=== PATIENT | female | born 1970 | race Caucasian/White ===

== ENCOUNTER 2023-10-01 22:32 | Emergency (ER) | payer MEDICARE ==
[~2023-10-01] VITALS: Ht 154.9 cm; Wt 61.4 kg
[2023-10-01 22:57] VITALS: BP 164/89; TEMP 97.6; O2SAT 100
[2023-10-02 02:42] LABS: BASO # 0.1 10^3/uL (0.0-0.2); BASO % 0.7 % (0.0-1.0); EOS # 0.2 10^3/uL (0.0-0.5); EOS % 1.6 % (0.0-3.0); HEMATOCRIT 36.7 % (36.0-47.0); HEMOGLOBIN 11.8 g/dl (12.0-15.5); LYMPH # 2.4 10^3/uL (1.5-5.0); LYMPH % 24.7 % (24.0-44.0); MEAN CORPUSCULAR HEMOGLOBIN 30.2 pg (27.0-33.0); MEAN CORPUSCULAR HGB CONC 32.2 g/dl (32.0-36.5); MEAN CORPUSCULAR VOLUME 93.9 fl (80.0-96.0); MONO # 0.8 10^3/uL (0.0-0.8); MONO % 7.9 % (2.0-8.0); NEUTROPHILS # 6.2 10^3/uL (1.5-8.5); NEUTROPHILS % 64.7 % (36.0-66.0); PLATELET COUNT, AUTOMATED 360 10^3/uL (150-450); RED BLOOD COUNT 3.91 10^6/uL (4.00-5.40); WHITE BLOOD COUNT 9.5 10^3/uL (4.0-10.0)
[2023-10-02 03:13] LABS: BLOOD UREA NITROGEN 15 MG/DL (9-23); CALCIUM LEVEL 9.2 MG/DL (8.5-10.1); CARBON DIOXIDE LEVEL 25 MMOL/L (20-31); CHLORIDE LEVEL 110 MMOL/L (98-107); CK-MB VALUE MASS 1.6 NG/ML (<3.6); CPK CREATINE PHOSPHOKINASE 173 U/L (34-145); CREATININE FOR GFR 0.62 MG/DL (0.55-1.30); GLOMERULAR FILTRATION RATE > 60.0 (>51); GLUCOSE, FASTING 101 MG/DL (60-100); MB/CK RELATIVE INDEX 0.92 (< OR =4); POTASSIUM SERUM 3.2 MMOL/L (3.5-5.1); SODIUM LEVEL 142 MMOL/L (136-145)
== END 2023-10-02 03:57 | disposition left against medical advice (07) ==
LOC: M ED 22:32
DX: R07.9 Chest pain, unspecified (principal); Z53.9 Procedure and treatment not carried out, unspecified reason

== ENCOUNTER 2023-10-02 23:20 | Emergency (ER) | payer MEDICARE ==
[~2023-10-02] VITALS: Ht 154.9 cm; Wt 61.4 kg
[2023-10-02 23:35] VITALS: BP 131/69; TEMP 96.6; O2SAT 100
== END 2023-10-03 01:18 | disposition left against medical advice (07) ==
LOC: M ED 23:20
DX: Z53.21 Procedure and treatment not carried out due to patient leaving prior to being seen by health care provider (principal)

== ENCOUNTER 2023-10-03 01:07 | Inpatient (IN) | payer MEDICARE ==
[~2023-10-03] VITALS: Ht 154.9 cm; Wt 60.1 kg
[2023-10-03 02:20] LABS: BASO # 0.1 10^3/uL (0.0-0.2); BASO % 0.5 % (0.0-1.0); EOS # 0.2 10^3/uL (0.0-0.5); EOS % 2.3 % (0.0-3.0); HEMATOCRIT 35.9 % (36.0-47.0); HEMOGLOBIN 11.6 g/dl (12.0-15.5); LYMPH # 2.5 10^3/uL (1.5-5.0); LYMPH % 26.3 % (24.0-44.0); MEAN CORPUSCULAR HEMOGLOBIN 30.9 pg (27.0-33.0); MEAN CORPUSCULAR HGB CONC 32.3 g/dl (32.0-36.5); MEAN CORPUSCULAR VOLUME 95.5 fl (80.0-96.0); MONO # 0.8 10^3/uL (0.0-0.8); NEUTROPHILS # 5.9 10^3/uL (1.5-8.5); NEUTROPHILS % 62.4 % (36.0-66.0); PLATELET COUNT, AUTOMATED 386 10^3/uL (150-450); RED BLOOD COUNT 3.76 10^6/uL (4.00-5.40); WHITE BLOOD COUNT 9.5 10^3/uL (4.0-10.0)
[2023-10-03 02:43] LABS: ETHYL ALCOHOL (ETHANOL) < 0.003 % (0.000-0.010)
[2023-10-03 02:44] LABS: SALICYLATE LEVEL 3.3 MG/DL (<30)
[2023-10-03 02:45] LABS: ALKALINE PHOSPHATASE 80 U/L (46-116); ALT/SGPT 20 U/L (7.0-40); AST/SGOT 21 U/L (<34); BILIRUBIN,DIRECT 0.2 MG/DL (<0.4); BILIRUBIN,TOTAL 0.4 MG/DL (0.3-1.2); BLOOD UREA NITROGEN 16 MG/DL (9-23); CALCIUM LEVEL 9.3 MG/DL (8.5-10.1); CARBON DIOXIDE LEVEL 26 MMOL/L (20-31); CHLORIDE LEVEL 108 MMOL/L (98-107); CREATININE FOR GFR 0.66 MG/DL (0.55-1.30); GLOMERULAR FILTRATION RATE > 60.0 (>51); GLUCOSE, FASTING 148 MG/DL (60-100); SODIUM LEVEL 140 MMOL/L (136-145); TOTAL PROTEIN 7.1 G/DL (5.7-8.2)
[2023-10-03 02:47] LABS: THYROID STIMULATING HORMONE 0.925 uIU/ML (0.55-4.78)
[2023-10-03 04:59] LABS: AMPHETAMINES LEVEL URINE NEGATIVE (NEGATIVE); BARBITURATES URINE NEGATIVE (NEGATIVE); BENZODIAZEPINES URINE NEGATIVE (NEGATIVE); COCAINE METABOLITE URINE NEGATIVE (NEGATIVE); METHADONE URINE NEGATIVE (NEGATIVE); OPIATES URINE NEGATIVE (NEGATIVE); PHENCYCLIDINE URINE NEGATIVE (NEGATIVE)
[2023-10-03 05:00] LABS: CANNABINOIDS URINE POSITIVE (NEGATIVE)
[2023-10-03] MEDS: POTASSIUM CHLORIDE 10MEQ SR TABLET PO ONE (06:02)
[2023-10-03] MEDS ORDERED: HOME MED LIST COMPLETE! XX SCH (10:25)
[2023-10-03] MEDS ORDERED: MOM 30ML SUSPENSION UDC PO PRN (20:50)
[2023-10-03] MEDS: traZODone 50 MG TAB PO PRN (22:48)
[2023-10-03] MEDS: ACETAMINOPHEN TAB 650MG DOSE (2X325MG) PO PRN (22:48)
[2023-10-04] MEDS: IBUPROFEN 400MG TAB PO PRN (00:09)
[2023-10-04 00:19] VITALS: BP 152/72; TEMP 98.9; O2SAT 100
[2023-10-04 06:24] VITALS: BP 104/57; TEMP 98.4; O2SAT 98
[2023-10-04 09:30] VITALS: BP 128/63; TEMP 98.2; O2SAT 100
[2023-10-04] MEDS: ESCITALOPRAM OXALATE 10 MG TAB (LEXAPRO) PO SCH (09:39)
[2023-10-04] MEDS: ASPIRIN 325 MG TAB PO ONE (11:01)
[2023-10-04] MEDS: POTASSIUM CHLORIDE 10MEQ SR TABLET PO SCH (11:01)
[2023-10-04 11:50] LABS: BLOOD UREA NITROGEN 14 MG/DL (9-23); CALCIUM LEVEL 9.3 MG/DL (8.5-10.1); CARBON DIOXIDE LEVEL 25 MMOL/L (20-31); CHLORIDE LEVEL 111 MMOL/L (98-107); CREATININE FOR GFR 0.56 MG/DL (0.55-1.30); GLOMERULAR FILTRATION RATE > 60.0 (>51); GLUCOSE, FASTING 92 MG/DL (60-100); POTASSIUM SERUM 4.3 MMOL/L (3.5-5.1); SODIUM LEVEL 142 MMOL/L (136-145)
[2023-10-04] MEDS: diphenhydrAMINE 25MG CAP PO PRN (14:27)
[2023-10-04] MEDS: LOPERAMIDE 2 MG CAPLET PO PRN (16:03)
[2023-10-04 17:49] VITALS: BP 135/83; TEMP 98.6
[2023-10-04] MEDS: MAALOX 30 ML SUSP *UDC PO PRN (21:26)
[2023-10-04] MEDS: traMADol 50 MG TAB PO ONE (21:51)
[2023-10-04] MEDS: diphenhydrAMINE 25MG CAP PO ONE (23:44)
[2023-10-04] MEDS: MAALOX 30 ML SUSP *UDC PO ONE (23:45)
[2023-10-05 05:00] VITALS: BP 151/79; TEMP 98.1; O2SAT 99
[2023-10-05] MEDS ORDERED: ACETAMINOPHEN *IV* 1,000 MG in IV 1 EA IV ONE (05:05)
[2023-10-05] MEDS: traMADol 50 MG TAB PO ONE (05:33)
[2023-10-05] MEDS: LIDOCAINE 5% (LIDODERM) PATCH TD ONE (06:02)
[2023-10-05 10:55] VITALS: BP 136/75
[2023-10-05] MEDS: PROPRANOLOL 10 MG TAB PO SCH (10:59)
[2023-10-05] MEDS: DULoxetine 20MG CAP (CYMBALTA) PO SCH (10:59)
[2023-10-05 18:13] VITALS: BP 146/86; TEMP 98.3
[2023-10-05 20:12] VITALS: BP 114/58
[2023-10-05] MEDS: PILL CUTTER 1 EACH XX PRN (20:14)
[2023-10-05] MEDS: traZODone 50 MG TAB PO PRN (20:15)
[2023-10-05] MEDS: CYCLOBENZAPRINE 5MG TABLET PO ONE (23:09)
[2023-10-05] MEDS: LIDOCAINE 5% (LIDODERM) PATCH TD SCH (23:09)
[2023-10-06 06:19] VITALS: BP 107/54; TEMP 98.1; O2SAT 100
[2023-10-06] MEDS: NICOTINE 21MG/24HR 1 EA TRANSDERMAL TD SCH (11:34)
[2023-10-06 16:25] VITALS: BP 139/75; TEMP 98.5; O2SAT 100
[2023-10-06] MEDS: traMADol 50 MG TAB PO ONE (21:43)
[2023-10-06] MEDS ORDERED: ATIV1TAB10 PO (22:52)
[2023-10-06] MEDS ORDERED: FAMO40TA3 PO (22:52)
[2023-10-06] MEDS ORDERED: FERR1TAB8 PO (22:52)
[2023-10-06] MEDS ORDERED: DULO1CAP5 PO (22:52)
[2023-10-06] MEDS ORDERED: LOPE2TAB12 PO (22:52)
[2023-10-06] MEDS ORDERED: ONDA-83 PO (22:52)
[2023-10-06] MEDS ORDERED: MULT-40 PO (22:52)
[2023-10-06] MEDS ORDERED: ERGO500029 PO (22:52)
[2023-10-06] MEDS ORDERED: HYDR1CAP25 PO (22:52)
[2023-10-06] MEDS ORDERED: LIDO76.52 TOP (22:52)
[2023-10-06] MEDS ORDERED: LIDO1ADH20 TOP (22:52)
[2023-10-06] MEDS ORDERED: MORP30TASA PO (22:52)
[2023-10-06] MEDS ORDERED: RA M10TA PO (22:52)
[2023-10-06] MEDS ORDERED: TRAM50TA2 PO (22:52)
[2023-10-06] MEDS ORDERED: PROBCAP5 PO (22:52)
[2023-10-06] MEDS ORDERED: HOME MED LIST COMPLETE! XX SCH (23:00)
[2023-10-07 06:27] VITALS: BP 116/56; TEMP 98.2; O2SAT 98
[2023-10-07] MEDS: MULTIVITAMINS/MINERALS THERAP 1 TAB PO SCH (14:15)
[2023-10-07] MEDS: FAMOTIDINE 20 MG TAB PO SCH (14:18)
[2023-10-07 16:10] VITALS: BP 152/88; TEMP 99.2; O2SAT 100
[2023-10-07] MEDS: traMADol 50 MG TAB PO PRN (17:12)
[2023-10-07] MEDS: ONDANSETRON 4MG TAB PO PRN (17:12)
[2023-10-07] MEDS: LORazepam 0.5 MG TAB PO PRN (17:15)
[2023-10-07] MEDS: DULoxetine 20MG CAP (CYMBALTA) PO SCH (21:00)
[2023-10-07] MEDS: LACTOBACILLUS ACIDOPHILUS CAP (BACID) PO SCH (21:01)
[2023-10-07] MEDS: FERROUS SULFATE 325MG TAB PO SCH (21:01)
[2023-10-08 06:23] VITALS: BP 114/62; TEMP 98.4; O2SAT 97
[2023-10-08 10:16] VITALS: TEMP 99.7
[2023-10-08 16:40] VITALS: BP 128/74; TEMP 99; O2SAT 98
[2023-10-08] MEDS ORDERED: ISOVUE-370 76% 100ML VIAL As Ordered ONE (17:47)
[2023-10-08] MEDS: NITROGLYCERIN 0.4MG SUBL TABLET SL ONE (18:02)
[2023-10-08 18:23] LABS: BASO % 0.5 % (0.0-1.0); EOS # 0.2 10^3/uL (0.0-0.5); EOS % 3.2 % (0.0-3.0); HEMATOCRIT 34.6 % (36.0-47.0); HEMOGLOBIN 10.7 g/dl (12.0-15.5); LYMPH # 2.2 10^3/uL (1.5-5.0); LYMPH % 38.4 % (24.0-44.0); MEAN CORPUSCULAR HEMOGLOBIN 30.4 pg (27.0-33.0); MEAN CORPUSCULAR HGB CONC 30.9 g/dl (32.0-36.5); MEAN CORPUSCULAR VOLUME 98.3 fl (80.0-96.0); MONO # 0.5 10^3/uL (0.0-0.8); NEUTROPHILS # 2.8 10^3/uL (1.5-8.5); NEUTROPHILS % 49.4 % (36.0-66.0); PLATELET COUNT, AUTOMATED 314 10^3/uL (150-450); RED BLOOD COUNT 3.52 10^6/uL (4.00-5.40); WHITE BLOOD COUNT 5.7 10^3/uL (4.0-10.0)
[2023-10-08 18:30] LABS: ERYTHROCYTE SEDIMENTATION RATE 17 mm/hr (0-30)
[2023-10-08] MEDS ORDERED: NITROGLYCERIN 0.4MG SUBL TABLET SL PRN (18:45)
[2023-10-08 18:46] LABS: C REACTIVE PROTEIN QUANTITATIV < 0.40 MG/DL (<1.0); CK-MB VALUE MASS < 1.0 NG/ML (<3.6)
[2023-10-08 18:48] LABS: ALBUMIN 3.5 G/DL (3.2-5.2); ALKALINE PHOSPHATASE 82 U/L (46-116); ALT/SGPT 19 U/L (7.0-40); AST/SGOT 12 U/L (<34); BILIRUBIN,TOTAL 0.2 MG/DL (0.3-1.2); BLOOD UREA NITROGEN 15 MG/DL (9-23); CARBON DIOXIDE LEVEL 30 MMOL/L (20-31); CHLORIDE LEVEL 109 MMOL/L (98-107); CPK CREATINE PHOSPHOKINASE 56 U/L (34-145); CREATININE FOR GFR 0.69 MG/DL (0.55-1.30); GLOMERULAR FILTRATION RATE > 60.0 (>51); GLUCOSE, FASTING 100 MG/DL (60-100); MB/CK RELATIVE INDEX 1.78 (< OR =4); POTASSIUM SERUM 4.3 MMOL/L (3.5-5.1); SODIUM LEVEL 142 MMOL/L (136-145); TOTAL PROTEIN 6.3 G/DL (5.7-8.2)
[2023-10-08 18:54] LABS: PROCALCITONIN <0.04 ng/ml
[2023-10-08] MEDS: FLUCONAZOLE 50MG TABLET PO ONE (19:10)
[2023-10-08] MEDS: MORPHINE 30 MG SA TAB PO ONE (19:13)
[2023-10-08] MEDS: PANTOPRAZOLE 20 MG TAB PO SCH (19:43)
[2023-10-08] MEDS: BENZOCAINE 10% 9GM TUBE (ANBESOL) TOP SCH (23:43)
[2023-10-09 00:16] LABS: CK-MB VALUE MASS < 1.0 NG/ML (<3.6)
[2023-10-09 00:17] LABS: CPK CREATINE PHOSPHOKINASE 60 U/L (34-145); MB/CK RELATIVE INDEX 1.66 (< OR =4)
[2023-10-09 06:19] VITALS: BP 111/54; TEMP 97.7; O2SAT 98
[2023-10-09 07:19] LABS: CK-MB VALUE MASS < 1.0 NG/ML (<3.6)
[2023-10-09 07:21] LABS: CPK CREATINE PHOSPHOKINASE 55 U/L (34-145); MB/CK RELATIVE INDEX 1.81 (< OR =4)
[2023-10-09 07:31] LABS: Trichomonas vaginalis (AMP) NOT DETECTED (NEGATIVE)
[2023-10-09 07:54] LABS: GC DNA AMPLIFICATION NEGATIVE (NEGATIVE)
[2023-10-09] MEDS: MORPHINE 30 MG SA TAB PO SCH (08:18)
[2023-10-09] MEDS: VITAMIN D 50,000 UNITS CAPSULE (ERGOCALCIFEROL 1.25MG) PO SCH (08:19)
[2023-10-09] MEDS: SUCRALFATE 1 GM TAB PO SCH (18:00)
[2023-10-09 20:42] VITALS: BP 110/58
[2023-10-09 20:48] VITALS: BP 109/60; TEMP 98.6; O2SAT 99
[2023-10-10 06:29] VITALS: BP 105/55; TEMP 98.7; O2SAT 99
[2023-10-10 08:03] VITALS: BP 130/61
[2023-10-10 08:12] VITALS: BP 130/61
[2023-10-10] MEDS ORDERED: PROP10TA56 PO (10:18)
[2023-10-10] MEDS ORDERED: PANT20TA51 PO (10:18)
[2023-10-10] MEDS ORDERED: SUCR1TA PO (10:18)
[2023-10-10] MEDS ORDERED: DULO-34 PO (10:18)
[2023-10-10] MEDS ORDERED: LIDO5TD TD (10:18)
[2023-10-10] MEDS ORDERED: NICO21PAT TD (10:18)
[2023-10-10] MEDS ORDERED: TRAZ-252 PO (10:18)
[2023-10-10] MEDS ORDERED: MORP30TASA PO (10:37)
[2023-10-10] MEDS ORDERED: TRAM50TA2 PO (10:38)
[2023-10-10] MEDS ORDERED: DULO1CAP4 PO (10:57)
[2023-10-10 11:10] VITALS: BP 121/72
== END 2023-10-10 15:07 | disposition home or self-care (01) | DRG 881 ==
LOC: M ED 01:07 → M ED INP 20:50 → M PSY 21:35
PROVIDERS: ADMIT Psychiatry & Neurology Psychiatry; ATTEND Student in an Organized Health Care Education/Training Program
DX: F32.A Depression, unspecified (principal); R45.851 Suicidal ideations; Z59.00 Homelessness unspecified; E06.3 Autoimmune thyroiditis; I34.1 Nonrheumatic mitral (valve) prolapse; F12.188 Cannabis abuse with other cannabis-induced disorder; E87.6 Hypokalemia; R07.89 Other chest pain; Z56.0 Unemployment, unspecified; Z81.1 Family history of alcohol abuse and dependence; F17.200 Nicotine dependence, unspecified, uncomplicated; Z88.2 Allergy status to sulfonamides